=== PATIENT | female | born 1940 | race Caucasian/White ===

== ENCOUNTER 2020-06-24 21:04 | Inpatient (IN) | payer MEDICARE, OTHER ==
[2020-06-24] MEDS ORDERED: Ondansetron 4 MG/2 ML SDV IV PRN (22:49)
[2020-06-24] MEDS ORDERED: Acetaminophen 325 MG Tab PO PRN ×2 (22:49)
[2020-06-24] MEDS ORDERED: Dexamethasone 4 MG Tab PO SCH (23:00)
--- NOTE | 2020-06-24 23:09 | PCM.HP.2 ---
H&P History of Present Illness - General Date of Service: 06/24/20 Admit Problem/Dx: Admission Diagnosis/Problem Admission Diagnosis/Problem Hypoxemia requiring supplemental oxygen - History of Present Illness Initial Comments - Free Text/Narative: 80-year-old female that was transferred from [facility], secondary to newly diagnosed COVID-19 pneumonia. Patient is a poor historian secondary to dementia though most of the history was obtained through previous history and physical from referring hospital and from the . Patient has been states that she started getting tired and more fatigued approximately a week ago. She was [facility] on [facility] 22, 2020 where she was found to have a urinary tract infection. A rapid COVID-19 test was performed in the emergency department which was negative and then a confirmatory test sent to the [facility] the [facility] came back today positive. Chest x-ray was also performed today secondary to a fever which s howed multiple new peripheral pulmonary opacities. Consider acute or recent COVID-19. When patient arrived she was on 2 L nasal cannula and still satting in the upper 80s. She has an underlying dementia as stated above therefore she would pull off her oxygen. Culture results for her urinary tract infection demonstrate E. coli greater than 100,000 colony-forming units. Is resistant to Bactrim, ampicillin, Unasyn, gentamicin, and intermediate resistance to ciprofloxacin. It is otherwise sensitive to all cephalosporins tested. See accompanying notes. Blood work from today showed a C-reactive protein of 10.9, normal white blood cell count of 7.1, anemia with a hemoglobin of 9.4, platelet count normal at 215, and negative occult blood. Initial treatment for her E. coli was with meropenem prior to sensitivities. - Related Data Allergies/Adverse Reactions: Allergies Allergy/AdvReac Type Severity Reaction Status Date / Time No Known Allergies Allergy Verified 06/24/20 22:49 Past Medical History HEENT History: Reports: None Cardiovascular History: Reports: Hypertension Respiratory History: Reports: None Gastrointestinal History: Reports: None Genitourinary History: Reports: None Musculoskeletal History: Reports: None Neurological History: Reports: None Psychiatric History: Reports: Dementia Endocrine/Metabolic History: Reports: Diabetes, Type II Hematologic History: Reports: Anemia Social & Family History - Family History Family Medical History: Unobtainable - Tobacco Use Tobacco Use Status *Q: Former Tobacco User - Alcohol Use Alcohol Use Frequency: Rarely - Living Situation & Occupation Living situation: Reports: , with Spouse H&P Review of Systems - Review of Systems: Review Of Systems: Comprehensive ROS is negative, except as noted in HPI. Exam - Exam Exam: See Below - Exam Quality Assessment: Supplemental Oxygen General: Alert. No: Oriented HEENT: Conjunctiva Clear, Hearing Intact, Mucosa Moist & [place], Normal Nasal Septum Neck: Supple, Trachea Midline, 2 Lungs: Normal Respiratory Effort, Crackles (Scattered bibasilar) Cardiovascular: Regular Rate, Regular Rhythm, Normal S1 GI/Abdominal Exam: Normal Bowel Sounds, Soft, Non-Tender, No Organomegaly, No Distention (Obese), No Abnormal Bruit, No Mass, Pelvis Stable Extremities: Normal Inspection, Normal Range of Motion, Non-Tender, No Pedal Edema, Normal Capillary Refill Skin: Warm, Dry, Intact Neurological: Cranial Nerves Intact Neuro Extensive - Mental Status: Alert, Normal Mood/Affect, Disorientation to Place. No: Memory Intact Psychiatric: Alert, Normal Affect, Normal Mood - Patient Data Result Diagrams: 06/24/20 23:16 06/24/20 23:16 - Problem List (1) Viral pneumonia SNOMED Code(s): 65199940 ICD Code: J12.9 - VIRAL PNEUMONIA, UNSPECIFIED Status: Acute Current Visit: Yes (2) UTI (urinary tract infection) SNOMED Code(s): 72920838 ICD Code: N39.0 - URINARY TRACT INFECTION, SITE NOT SPECIFIED Status: Acute Current Visit: Yes (3) Dementia SNOMED Code(s): 01669117 ICD Code: F03.90 - UNSPECIFIED DEMENTIA WITHOUT BEHAVIORAL DISTURBANCE Status: Acute Current Visit: Yes (4) Diabetes SNOMED Code(s): 49626642 ICD Code: E11.9 - TYPE 2 DIABETES MELLITUS WITHOUT COMPLICATIONS Status: Acute Current Visit: Yes (5) Anemia SNOMED Code(s): 236021291 ICD Code: D64.9 - ANEMIA, UNSPECIFIED Status: Acute Current Visit: Yes Problem List Initiated/Reviewed/Updated: Yes Orders Last 24hrs: Active Orders 24 hr Category Date Time Status Patient Status [ADT] Routine ADT 06/24/20 22:49 Ordered Cardiac Monitoring [RC] . DIRECTED Care 06/24/20 22:49 Ordered Nurse Communication: Isolation [RC] ASDIRECTED Care 06/24/20 22:52 Ordered Oxygen Therapy [RC] PRN Care 06/24/20 22:50 Ordered Positioning, Patient [RC] ASDIRECTED Care 06/24/20 22:53 Ordered RT Incentive Spirometry [RC] ASDIRECTED Care 06/24/20 22:49 Ordered Up With Assistance [RC] ASDIRECTED Care 06/24/20 22:49 Ordered VTE/DVT Education [RC] PER UNIT ROUTINE Care 06/24/20 22:50 Ordered Verify Patient Consent Obtain [RC] ASDIRECTED Care 06/24/20 22:50 Ordered Vital Signs [RC] Q4H Care 06/24/20 22:50 Ordered Consistent Carbohydrate Diet [DIET] Diet 06/25/20 Breakfast Ordered Chest 1V Frontal [CR] Stat Exams 06/24/20 22:55 Ordered ABO/RH TYPE [BBK] Routine Lab 06/24/20 22:50 Ordered BASIC METABOLIC PANEL,BMP [CHEM] Stat Lab 06/24/20 22:49 Ordered C-REACTIVE PROTEIN [CHEM] Stat Lab 06/24/20 22:49 Ordered CBC WITH AUTO DIFF [HEME] Stat Lab 06/24/20 22:54 Ordered CORONAVIRUS COVID-19 MIMI [MOLEC] Stat Lab 06/24/20 22:49 Ordered D-DIMER QUANTITATIVE [COAG] Stat Lab 06/24/20 22:49 Ordered FERRITIN [CHEM] Routine Lab 06/24/20 22:49 Ordered FRESH FROZEN PLASMA [BBK] Routine Lab 06/24/20 22:50 Ordered HEPATIC FUNCTION PANEL,HFP [CHEM] DAILY Lab 06/25/20 23:00 Ordered HEPATIC FUNCTION PANEL,HFP [CHEM] DAILY Lab 06/26/20 23:00 Ordered HEPATIC FUNCTION PANEL,HFP [CHEM] DAILY Lab 06/27/20 23:00 Ordered HEPATIC FUNCTION PANEL,HFP [CHEM] DAILY Lab 06/28/20 23:00 Ordered HEPATIC FUNCTION PANEL,HFP [CHEM] Stat Lab 06/24/20 22:49 Ordered INR,PT,PROTHROMBIN TIME [COAG] Routine Lab 06/24/20 22:55 Ordered LACTATE DEHYDROGENASE,LDH [CHEM] Stat Lab 06/24/20 22:49 Ordered LACTIC ACID [CHEM] Stat Lab 06/24/20 22:49 Ordered PROCALCITONIN [REF] Stat Lab 06/24/20 22:49 Ordered PTT,PARTIAL THROMBOPLSTIN TIME [COAG] Routine Lab 06/24/20 22:49 Ordered Acetaminophen [TylenoL] Med 06/24/20 22:49 Ordered 650 mg PO Q4H PRN Acetaminophen [TylenoL] Med 06/24/20 22:49 Ordered 650 mg PO Q4H PRN Enoxaparin [Lovenox] Med 06/25/20 09:00 Ordered 40 mg SUBCUT DAILY Ondansetron [Zofran] Med 06/24/20 22:49 Ordered 4 mg IV Q4H PRN Remdesivir 100 mg Med 06/25/20 09:00 Ordered Sodium Chloride 0.9% [Normal Saline] 100 ml IV DAILY Remdesivir 200 mg Med 06/24/20 22:49 Ordered Sodium Chloride 0.9% [Normal Saline] 250 ml IV ONETIME dexAMETHasone Med 06/24/20 23:00 Ordered 6 mg PO DAILY Isolation [COMM] Stat Oth 06/24/20 22:50 Ordered Transfuse Fresh Frozen Plasma [COMM] Routine Oth 06/24/20 22:50 Ordered Resuscitation Status Routine Resus Stat 06/24/20 22:49 Ordered Medication Orders Acetaminophen (Tylenol) 650 mg PO Q4H PRN PRN Reason: Fever Greater Than 101 Dexamethasone (Dexamethasone) 6 mg PO DAILY KRYSTINA Stop: 07/03/20 09:01 Remdesivir 200 mg/ Sodium (Chloride) 250 mls @ 250 mls/hr IV ONETIME ONE Stop: 06/24/20 22:50 Remdesivir 100 mg/ Sodium (Chloride) 100 mls @ 100 mls/hr IV DAILY KRYSTINA Stop: 06/28/20 09:59 Assessment/Plan Comment:: Assessment 80-year-old female with poorly controlled diabetes with 1 week history of increasing fatigue and altered mental status was transferred from [facility] after a positive COVID-19 result. Patient was hospitalized for 2 days for a UTI prior to transfer. Covid viral pneumonia Hypoxemia * Initial testing at a near hospital was negative but confirmatory testing done on the same day was sent to the [facility] was positive. * Reported fever today and chest x-ray consistent with viral pneumonia. * Repeat testing here was positive * agreed to treatment with convalescent plasma * I spoke with the patient and her to provide information about convalescent plasma. I offered the "fax sheet for patients and parents/careg coco, for COVID-19 convalescent plasma to read and review. I stated that therapy has been approved by an emergency use authorization process and has not fully been FDA reviewed or approved. I shared potential risks from the therapy including transmission of blood borne pathogen such as HIV and hepatitis C, allergic and transfusion related reactions, post transfusion purpura. Additionally theoretical risks include a phenomenon called antibody- dependent enhancement of infection such as is seen in dengue or attenuation of an immune response that may make patients more susceptible to reinfection. 2 units ordered * Further laboratory testing pending Type 2 diabetespoorly controlled * On glipizide and Metformin at home * Unknown hemoglobin A1c Dementia * COVID-19 and the hypoxemia associated with it has a tendency to worsen mental status. * Dexamethasone used to combat COVID-19 also can worsen confusion. * Finally the elderly in a hospital setting can also have an increased risk for delirium. * Anticipate increasing confusion over the next few days. UTI, uncomplicated * E. coli sensitive to cefazolin Anemia * Reportedly chronic * History of previous work-up not available to me. * Fecal occult testing done in [place] was negative. Plan * Admit to medical floor on continuous pulse ox and telemetry * FiO2 to keep SPO2 between 88 and 94% * Patient may have difficulty keeping the nasal cannula in her nose because of her confusion. When I walked in it was out of her nose. * Start dexamethasone, remdesivir, convalescent plasma, vitamin D, zinc, Pepcid * Covid laboratory studies ordered * Anemia work-up pending * Keflex 500 mg 4 times daily for 3 days to complete 6 days of treatment * Start sliding scale insulin and stop Glucophage and glipizide, which she was on in the hospital and had a year * Reconcile other medications when available * Patient's been on 3 days of antibiotics, therefore blood cultures will be performed. * CODE STATUS: Full code * DVT prophylaxis with Lovenox - Mortality Measure Prognosis:: Good
[2020-06-24 23:39] LABS: HEMOGLOBIN A1C 8.1 %
[2020-06-25] MEDS ORDERED: Cephalexin 500 MG Cap PO SCH
[2020-06-25] MEDS ORDERED: REMDESIVIR 200 MG in Sodium Chloride 0.9% 250 ML IV ONE (00:15)
[2020-06-25] MEDS: Cephalexin 500 MG Cap PO SCH ×4 (00:59→17:57)
[2020-06-25] MEDS ORDERED: Dexamethasone 4 MG Tab PO SCH (01:00)
[2020-06-25] MEDS ORDERED: Sodium Chloride 0.9% 100 ML IV SCH (01:00)
--- NOTE | 2020-06-25 08:31 | CR ---
Chest: Portable view of the chest was obtained. Comparison: No prior chest imaging is available. Heart size and mediastinum are normal. Lung markings are increased with mild peripheral basilar densities most likely representing mild bronchitis and mild peripheral bilateral pneumonia. Scoliosis is noted within the spine. No acute osseous abnormality is appreciated. Impression: 1. Findings compatible with mild bronchitis and mild pneumonia, suspicious for possible viral disease. Please correlate. Diagnostic code #3 I agree with preliminary report from [facility], finalized on 06/25/20, 4:45 AM Central Standard Time
--- NOTE | 2020-06-25 08:34 | PCM.PN ---
- General Info Date of Service: 06/25/20 Admission Dx/Problem (Free Text): Admission Diagnosis/Problem Admission Diagnosis/Problem Hypoxemia requiring supplemental oxygen Subjective Update: The patient is a 80-year-old lady who had been directly admitted to the hospital yesterday due to COVID-19 pneumonia. [facility] and was found to have a urinary tract infection apparently E. coli and the patient has been started on Keflex. Patient today says that she is feeling well. She has no oxygen on at the time of examination. She does not feel short of breath. She has denied any pain. The patient also says that she has been tolerating her diet. Functional Status: Reports: Pain Controlled - Review of Systems General: Reports: No Symptoms HEENT: Reports: No Symptoms Pulmonary: Reports: No Symptoms Cardiovascular: Reports: No Symptoms Gastrointestinal: Reports: No Symptoms Genitourinary: Reports: No Symptoms Musculoskeletal: Reports: No Symptoms Skin: Reports: No Symptoms Neurological: Reports: No Symptoms Psychiatric: Reports: No Symptoms - Patient Data Vitals - Most Recent: Last Vital Signs Temp 36.9 C 06/25/20 07:34 Pulse 67 06/25/20 07:34 Resp 14 06/25/20 07:34 BP 129/57 L 06/25/20 07:34 Pulse Ox 94 L 06/25/20 07:34 Weight - Most Recent: 77.474 kg I&O - Last 24 Hours: Intake & Output 06/24/20 06/25/20 06/25/20 22:59 06:59 14:59 Intake Total 207 Balance 207 Lab Results Last 24 Hours: Laboratory Results - last 24 hr 06/24/20 06/24/20 06/24/20 Range/Units 23:12 23:15 23:16 WBC (3.98-10.04) K/mm3 RBC (3.98-5.22) M/mm3 Hgb (11.2-15.7) gm/dl Hct (34.1-44.9) % MCV (79.4-94.8) fl MCH (25.6-32.2) pg MCHC (32.2-35.5) g/dl RDW Std Deviation (36.4-46.3) fL Plt Count (182-369) K/mm3 MPV (9.4-12.3) fl Neut % (Auto) (34.0-71.1) % Lymph % (Auto) (19.3-51.7) % [place] % (Auto) (4.7-12.5) % Eos % (Auto) (0.7-5.8) Baso % (Auto) (0.1-1.2) % Neut # (Auto) (1.56-6.13) K/mm3 Lymph # (Auto) (1.18-3.74) K/mm3 [place] # (Auto) (0.24-0.36) K/mm3 Eos # (Auto) (0.04-0.36) K/mm3 Baso # (Auto) (0.01-0.08) K/mm3 Manual Slide Review PT (9.7-12.0) SECONDS INR APTT (21.7-31.4) SECONDS D-Dimer, Quantitative (0.19-0.50) mg/L Sodium (136-145) mEq/L Potassium (3.5-5.1) mEq/L Chloride (98-107) mEq/L Carbon Dioxide (21-32) mEq/L Anion Gap (5-15) BUN (7-18) mg/dL Creatinine (0.55-1.02) mg/dL Est Cr Clr Drug Dosing Estimated GFR (MDRD) (>60) mL/min BUN/Creatinine Ratio (14-18) Glucose (83-115) mg/dL POC Glucose (83-110) mg/dL Hemoglobin A1c ( - 5.6) % Lactic Acid (0.4-2.0) mmol/L Calcium (8.5-10.1) mg/dL Iron (50-170) ug/dL TIBC (100-400) ug/dL % Saturation (20-55) % Transferrin (202-364) mg/dL Ferritin 281 H (8-252) ng/ml Total Bilirubin (0.2-1.0) mg/dL Direct Bilirubin (0.0-0.2) mg/dl Indirect Bilirubin AST (15-37) U/L ALT (14-59) U/L Alkaline Phosphatase (46-116) U/L Lactate Dehydrogenase (81-234) U/L C-Reactive Protein (<1.0) mg/dL Total Protein (6.4-8.2) g/dl Albumin (3.4-5.0) g/dl Globulin gm/dL Albumin/Globulin Ratio (1-2) Vitamin B12 (193-986) pg/ml Vitamin D 25-Hydroxy (30.0-100.0) ng/ml SARS-CoV-2 RNA (MIMI) Positive H (NEGATIVE) Blood Type O POSITIVE Gel Antibody Screen Negative 06/24/20 06/24/20 06/24/20 Range/Units 23:16 23:16 23:16 WBC (3.98-10.04) K/mm3 RBC (3.98-5.22) M/mm3 Hgb (11.2-15.7) gm/dl Hct (34.1-44.9) % MCV (79.4-94.8) fl MCH (25.6-32.2) pg MCHC (32.2-35.5) g/dl RDW Std Deviation (36.4-46.3) fL Plt Count (182-369) K/mm3 MPV (9.4-12.3) fl Neut % (Auto) (34.0-71.1) % Lymph % (Auto) (19.3-51.7) % [place] % (Auto) (4.7-12.5) % Eos % (Auto) (0.7-5.8) Baso % (Auto) (0.1-1.2) % Neut # (Auto) (1.56-6.13) K/mm3 Lymph # (Auto) (1.18-3.74) K/mm3 [place] # (Auto) (0.24-0.36) K/mm3 Eos # (Auto) (0.04-0.36) K/mm3 Baso # (Auto) (0.01-0.08) K/mm3 Manual Slide Review PT 11.9 (9.7-12.0) SECONDS INR 1.11 APTT 33.7 H (21.7-31.4) SECONDS D-Dimer, Quantitative 0.99 H (0.19-0.50) mg/L Sodium 140 (136-145) mEq/L Potassium 3.7 (3.5-5.1) mEq/L Chloride 105 (98-107) mEq/L Carbon Dioxide 23 (21-32) mEq/L Anion Gap 15.7 H (5-15) BUN 17 (7-18) mg/dL Creatinine 0.8 (0.55-1.02) mg/dL Est Cr Clr Drug Dosing TNP Estimated GFR (MDRD) > 60 (>60) mL/min BUN/Creatinine Ratio 21.3 H (14-18) Glucose 141 H (83-115) mg/dL POC Glucose (83-110) mg/dL Hemoglobin A1c ( - 5.6) % Lactic Acid 0.9 (0.4-2.0) mmol/L Calcium 7.8 L (8.5-10.1) mg/dL Iron (50-170) ug/dL TIBC (100-400) ug/dL % Saturation (20-55) % Transferrin (202-364) mg/dL Ferritin (8-252) ng/ml Total Bilirubin 0.5 (0.2-1.0) mg/dL Direct Bilirubin 0.10 (0.0-0.2) mg/dl Indirect Bilirubin 0.40 AST 23 (15-37) U/L ALT 12 L (14-59) U/L Alkaline Phosphatase 81 (46-116) U/L Lactate Dehydrogenase 212 (81-234) U/L C-Reactive Protein 14.1 H* (<1.0) mg/dL Total Protein 6.5 (6.4-8.2) g/dl Albumin 2.4 L (3.4-5.0) g/dl Globulin 4.1 gm/dL Albumin/Globulin Ratio 0.6 L (1-2) Vitamin B12 (193-986) pg/ml Vitamin D 25-Hydroxy (30.0-100.0) ng/ml SARS-CoV-2 RNA (MIMI) (NEGATIVE) Blood Type Gel Antibody Screen 06/24/20 06/24/20 06/24/20 Range/Units 23:16 23:16 23:16 WBC 7.31 (3.98-10.04) K/mm3 RBC 3.04 L (3.98-5.22) M/mm3 Hgb 8.3 L (11.2-15.7) gm/dl Hct 26.2 L (34.1-44.9) % MCV 86.2 (79.4-94.8) fl MCH 27.3 (25.6-32.2) pg MCHC 31.7 L (32.2-35.5) g/dl RDW Std Deviation 46.1 (36.4-46.3) fL Plt Count 226 (182-369) K/mm3 MPV 10.4 (9.4-12.3) fl Neut % (Auto) 74.6 H (34.0-71.1) % Lymph % (Auto) 19.0 L (19.3-51.7) % [place] % (Auto) 5.7 (4.7-12.5) % Eos % (Auto) 0.3 L (0.7-5.8) Baso % (Auto) 0.1 (0.1-1.2) % Neut # (Auto) 5.45 (1.56-6.13) K/mm3 Lymph # (Auto) 1.39 (1.18-3.74) K/mm3 [place] # (Auto) 0.42 H (0.24-0.36) K/mm3 Eos # (Auto) 0.02 L (0.04-0.36) K/mm3 Baso # (Auto) 0.01 (0.01-0.08) K/mm3 Manual Slide Review Abnormal smear PT (9.7-12.0) SECONDS INR APTT (21.7-31.4) SECONDS D-Dimer, Quantitative (0.19-0.50) mg/L Sodium (136-145) mEq/L Potassium (3.5-5.1) mEq/L Chloride (98-107) mEq/L Carbon Dioxide (21-32) mEq/L Anion Gap (5-15) BUN (7-18) mg/dL Creatinine (0.55-1.02) mg/dL Est Cr Clr Drug Dosing Estimated GFR (MDRD) (>60) mL/min BUN/Creatinine Ratio (14-18) Glucose (83-115) mg/dL POC Glucose (83-110) mg/dL Hemoglobin A1c 8.1 H ( - 5.6) % Lactic Acid (0.4-2.0) mmol/L Calcium (8.5-10.1) mg/dL Iron (50-170) ug/dL TIBC (100-400) ug/dL % Saturation (20-55) % Transferrin (202-364) mg/dL Ferritin (8-252) ng/ml Total Bilirubin (0.2-1.0) mg/dL Direct Bilirubin (0.0-0.2) mg/dl Indirect Bilirubin AST (15-37) U/L ALT (14-59) U/L Alkaline Phosphatase (46-116) U/L Lactate Dehydrogenase (81-234) U/L C-Reactive Protein (<1.0) mg/dL Total Protein (6.4-8.2) g/dl Albumin (3.4-5.0) g/dl Globulin gm/dL Albumin/Globulin Ratio (1-2) Vitamin B12 765 (193-986) pg/ml Vitamin D 25-Hydroxy (30.0-100.0) ng/ml SARS-CoV-2 RNA (MIMI) (NEGATIVE) Blood Type Gel Antibody Screen 06/24/20 06/24/20 06/25/20 Range/Units 23:16 23:16 07:08 WBC (3.98-10.04) K/mm3 RBC (3.98-5.22) M/mm3 Hgb (11.2-15.7) gm/dl Hct (34.1-44.9) % MCV (79.4-94.8) fl MCH (25.6-32.2) pg MCHC (32.2-35.5) g/dl RDW Std Deviation (36.4-46.3) fL Plt Count (182-369) K/mm3 MPV (9.4-12.3) fl Neut % (Auto) (34.0-71.1) % Lymph % (Auto) (19.3-51.7) % [place] % (Auto) (4.7-12.5) % Eos % (Auto) (0.7-5.8) Baso % (Auto) (0.1-1.2) % Neut # (Auto) (1.56-6.13) K/mm3 Lymph # (Auto) (1.18-3.74) K/mm3 [place] # (Auto) (0.24-0.36) K/mm3 Eos # (Auto) (0.04-0.36) K/mm3 Baso # (Auto) (0.01-0.08) K/mm3 Manual Slide Review PT (9.7-12.0) SECONDS INR APTT (21.7-31.4) SECONDS D-Dimer, Quantitative (0.19-0.50) mg/L Sodium (136-145) mEq/L Potassium (3.5-5.1) mEq/L Chloride (98-107) mEq/L Carbon Dioxide (21-32) mEq/L Anion Gap (5-15) BUN (7-18) mg/dL Creatinine (0.55-1.02) mg/dL Est Cr Clr Drug Dosing Estimated GFR (MDRD) (>60) mL/min BUN/Creatinine Ratio (14-18) Glucose (83-115) mg/dL POC Glucose 132 H (83-110) mg/dL Hemoglobin A1c ( - 5.6) % Lactic Acid (0.4-2.0) mmol/L Calcium (8.5-10.1) mg/dL Iron 9 L (50-170) ug/dL TIBC 203 (100-400) ug/dL % Saturation 4 L (20-55) % Transferrin 162 L (202-364) mg/dL Ferritin (8-252) ng/ml Total Bilirubin (0.2-1.0) mg/dL Direct Bilirubin (0.0-0.2) mg/dl Indirect Bilirubin AST (15-37) U/L ALT (14-59) U/L Alkaline Phosphatase (46-116) U/L Lactate Dehydrogenase (81-234) U/L C-Reactive Protein (<1.0) mg/dL Total Protein (6.4-8.2) g/dl Albumin (3.4-5.0) g/dl Globulin gm/dL Albumin/Globulin Ratio (1-2) Vitamin B12 (193-986) pg/ml Vitamin D 25-Hydroxy 26.9 L (30.0-100.0) ng/ml SARS-CoV-2 RNA (MIMI) (NEGATIVE) Blood Type Gel Antibody Screen Med Orders - Current: Current Medications Acetaminophen (Tylenol) 650 mg PO Q4H PRN PRN Reason: Fever Greater Than 101 Last Admin: 06/25/20 03:37 Dose: 650 mg Documented by: Cephalexin (Keflex) 500 mg PO Q6HR KRYSTINA Stop: 06/27/20 18:01 Last Admin: 06/25/20 08:12 Dose: 500 mg Documented by: Cholecalciferol (Vitamin D3) 5,000 unit PO DAILY KRYSTINA Dexamethasone (Dexamethasone) 6 mg PO DAILY KRYSTINA Stop: 07/03/20 09:01 Last Admin: 06/25/20 00:54 Dose: 6 mg Documented by: Enoxaparin Sodium (Lovenox) 40 mg SUBCUT DAILY [facility] Famotidine (Pepcid) 20 mg PO BID [facility] Remdesivir 100 mg/ Sodium (Chloride) 100 mls @ 100 mls/hr IV DAILY@1800 [facility] Stop: 06/28/20 18:59 Sodium Chloride (Normal Saline) 100 mls @ 25 mls/hr IV ASDIRECTED [facility] Insulin Human Lispro (Humalog) 0 unit SUBCUT QIDACANDBED [facility]; Protocol Ondansetron HCl (Zofran) 4 mg IV Q4H PRN PRN Reason: Nausea/Vomiting Zinc Sulfate (Zincate) 220 mg PO DAILY [facility] Discontinued Medications Acetaminophen (Tylenol) 650 mg PO Q4H PRN PRN Reason: Pain (Mild 1-3)/fever Remdesivir 200 mg/ Sodium (Chloride) 250 mls @ 250 mls/hr IV ONETIME ONE Stop: 06/25/20 01:14 Last Admin: 06/25/20 00:52 Dose: 250 mls/hr Documented by: - Exam Quality Assessment: DVT Prophylaxis. No: Supplemental Oxygen General: Alert, Oriented, Cooperative HEENT: Pupils Equal, Pupils Reactive, EOMI Neck: Supple, Trachea Midline Lungs: Clear to Auscultation, Normal Respiratory Effort Cardiovascular: Regular Rate, Regular Rhythm GI/Abdominal Exam: Normal Bowel Sounds, Soft, Non-Tender, No Distention (Female) Exam: Deferred Back Exam: Normal Inspection Extremities: Normal Inspection, No Pedal Edema Skin: Warm, Dry, Intact Neurological: No New Focal Deficit Psy/Mental Status: Alert, Normal Affect, Normal Mood Sepsis Event Note - Focused Exam Vital Signs: Vital Signs Temp Pulse Pulse Resp BP BP Pulse Ox 06/25/20 07:34 36.9 C 67 14 129/57 L 94 L 06/25/20 04:19 36.9 C 83 22 H 116/48 L 92 L 06/25/20 03:12 36.9 C 82 22 H 116/48 L 92 L 06/25/20 03:00 37.1 C 84 22 H 135/97 H 90 L 06/25/20 02:57 37.1 C 81 22 H 135/97 H 91 L 06/25/20 02:42 37.6 C 81 24 H 118/64 06/25/20 02:39 81 118/64 91 L 06/25/20 02:36 37.6 C 80 24 H 98/85 90 L 06/25/20 02:22 37.4 C 06/25/20 00:07 37.2 C 81 20 149/46 H 88 L 06/24/20 21:22 36.9 C 82 24 H 137/59 L 94 L - Problem List & Annotations (1) Acute respiratory failure due to COVID-19 SNOMED Code(s): 232702209 Code(s): U07.1 - COVID-19; J96.00 - ACUTE RESPIRATORY FAILURE, UNSP W HYPOXIA OR HYPERCAPNIA Status: Acute Priority: High Current Visit: Yes (2) COVID-19 determined by clinical diagnostic criteria SNOMED Code(s): 671042527, 651215302 Code(s): U07.1 - COVID-19 Status: Acute Priority: High Current Visit: Yes (3) Viral pneumonia SNOMED Code(s): 95680438 Code(s): J12.9 - VIRAL PNEUMONIA, UNSPECIFIED Status: Acute Priority: High Current Visit: Yes (4) UTI (urinary tract infection) SNOMED Code(s): 11390647 Code(s): N39.0 - URINARY TRACT INFECTION, SITE NOT SPECIFIED Status: Acute Priority: High Current Visit: Yes Qualifiers: Urinary tract infection type: site unspecified Hematuria presence: without hematuria Qualified Code(s): N39.0 - Urinary tract infection, site not specified (5) Diabetes SNOMED Code(s): 64736833 Code(s): E11.9 - TYPE 2 DIABETES MELLITUS WITHOUT COMPLICATIONS Status: Chronic Priority: Medium Current Visit: Yes Qualifiers: Diabetes mellitus type: type 2 Diabetes mellitus retirement insulin use: without retirement use Diabetes mellitus complication status: without complication Qualified Code(s): E11.9 - Type 2 diabetes mellitus without complications - Problem List Review Problem List Initiated/Reviewed/Updated: Yes - Assessment Assessment:: Patient is a 80-year-old lady who is being treated for Covid pneumonia with hypoxemia. The patient will be kept on oxygen support to help keep her saturations between 90 and 92%. The patient is currently on remdesivir and this will be continued for full treatment dose. I have also ordered a CBC to follow the patient's previously noted anemia. Comprehensive metabolic panel has also been ordered. The patient will have appropriate carb constant diet and her blood sugars will be checked as per protocol. Her blood sugars are likely to be high as she is also on a steroid. The patient has been encouraged to ambulate. DVT prophylaxis will continue with Lovenox. The patient will also continue Keflex for her urinary tract infection. She should be appropriate for discharge after completion of her antiviral. - Plan Plan:: Assessment 80-year-old female with poorly controlled diabetes with 1 week history of increasing fatigue and altered mental status was transferred from [facility] after a positive COVID-19 result. Patient was hospitalized for 2 days for a UTI prior to transfer. Covid viral pneumonia Hypoxemia * Initial testing at a near hospital was negative but confirmatory testing done on the same day was sent to the state was positive. * Reported fever today and chest x-ray consistent with viral pneumonia. * Repeat testing here was positive * agreed to treatment with convalescent plasma * I spoke with the patient and her to provide information about convalescent plasma. I offered the "fax sheet for patients and parents/caregivers, for COVID-19 convalescent plasma to read and review. I stated that therapy has been approved by an emergency use authorization process and has not fully been FDA reviewed or approved. I shared potential risks from the therapy including transmission of blood borne pathogen such as HIV and hepatitis C, allergic and transfusion related reactions, post transfusion purpura. Additionally theoretical risks include a phenomenon called antibody-dependent enhancement of infection such as is seen in dengue or attenuation of an immune response that may make patients more susceptible to reinfection. 2 units ordered * Further laboratory testing pending Type 2 diabetespoorly controlled * On glipizide and Metformin at home * Unknown hemoglobin A1c Dementia * COVID-19 and the hypoxemia associated with it has a tendency to worsen mental status. * Dexamethasone used to combat COVID-19 also can worsen confusion. * Finally the elderly in a hospital setting can also have an increased risk for delirium. * Anticipate increasing confusion over the next few days. UTI, uncomplicated * E. coli sensitive to cefazolin Anemia * Reportedly chronic * History of previous work-up not available to me. * Fecal occult testing done in [place] was negative. Plan * Admit to medical floor on continuous pulse ox and telemetry * FiO2 to keep SPO2 between 88 and 94% * Patient may have difficulty keeping the nasal cannula in her nose because of her confusion. When I walked in it was out of her nose. * Start dexamethasone, remdesivir, convalescent plasma, vitamin D, zinc, Pepcid * Covid laboratory studies ordered * Anemia work-up pending * Keflex 500 mg 4 times daily for 3 days to complete 6 days of treatment * Start sliding scale insulin and stop Glucophage and glipizide, which she was on in the hospital and had a year * Reconcile other medications when available * Patient's been on 3 days of antibiotics, therefore blood cultures will be performed. * CODE STATUS: Full code * DVT prophylaxis with Lovenox
[2020-06-25] MEDS: Enoxaparin 40 MG/0.4 ML Syringe SUBCUT SCH (09:37)
[2020-06-25] MEDS: Famotidine 20 MG Tab PO SCH ×2 (09:38→21:47)
[2020-06-25] MEDS: Zinc Sulfate 220 MG Cap PO SCH (09:38)
[2020-06-25] MEDS: Cholecalciferol (Vitamin D3) 5,000 UNIT Cap PO SCH (09:38)
--- NOTE | 2020-06-25 17:30 | PCM.SN.2 ---
- Free Text/Narrative Note: Called for difficult IV start. Multiple failed previous attempts. Lidocaine to skin, 20 gauge IV inserted with standard aseptic technique to her right antecubital vein, good blood return, flushes well with 10 ml of normal saline, secured with transparent dressing and skin prep in IV start kit. Nursing staff present for insertion to assist with Farhana. Tolerated the placement well.
[2020-06-25] MEDS: REMDESIVIR 100 MG in Sodium Chloride 0.9% 100 ML IV SCH (17:56)
[2020-06-25] MEDS: Donepezil 10 MG Tab PO SCH (21:47)
[2020-06-25] MEDS: Dexamethasone 4 MG Tab PO SCH (21:47)
[2020-06-26] MEDS: Cephalexin 500 MG Cap PO SCH ×5 (01:27→23:35)
[2020-06-26] MEDS ORDERED: Triamcinolone Acetonide 0.1% Crm 15 GM Tube TOP PRN (07:19)
[2020-06-26] MEDS ORDERED: Hydrocortisone 1% Crm 30 GM Tube TOP PRN (07:27)
[2020-06-26] MEDS: Famotidine 20 MG Tab PO SCH ×2 (08:43→21:09)
[2020-06-26] MEDS: Aspirin 325 MG Tab.EC PO SCH (08:43)
[2020-06-26] MEDS: metFORMIN 500 MG Tab PO SCH ×2 (08:44→21:07)
[2020-06-26] MEDS: Zinc Sulfate 220 MG Cap PO SCH (08:44)
[2020-06-26] MEDS: Cholecalciferol (Vitamin D3) 5,000 UNIT Cap PO SCH (08:47)
[2020-06-26] MEDS: Lisinopril 20 MG Tab PO SCH (08:47)
[2020-06-26] MEDS: Hydrochlorothiazide 25 MG Tab PO SCH (08:47)
[2020-06-26] MEDS: Enoxaparin 40 MG/0.4 ML Syringe SUBCUT SCH (08:48)
[2020-06-26] MEDS ORDERED: Pregabalin 75 MG Cap PO SCH (09:00)
--- NOTE | 2020-06-26 09:18 | PCM.PN ---
- General Info Date of Service: 06/26/20 Admission Dx/Problem (Free Text): Admission Diagnosis/Problem Admission Diagnosis/Problem Hypoxemia requiring supplemental oxygen, COVID- 19 Subjective Update: Patient is a 80-year-old lady who was admitted on June 24, 2020 with hypoxia requiring supplemental oxygen. She was found to be Covid positive. The patient today does not have her oxygen on and she has been desaturating down to a recorded 88%. The patient does not remember speaking with me yesterday and she is disoriented today. The patient has denied any pain. She has been tolerating her diet. Functional Status: Reports: Pain Controlled, Tolerating Diet. Denies: New Symptoms - Review of Systems General: Reports: Weakness HEENT: Reports: No Symptoms Pulmonary: Reports: No Symptoms Cardiovascular: Reports: No Symptoms Gastrointestinal: Reports: No Symptoms Genitourinary: Reports: No Symptoms Musculoskeletal: Reports: No Symptoms Skin: Reports: No Symptoms Neurological: Reports: No Symptoms Psychiatric: Reports: No Symptoms - Patient Data Vitals - Most Recent: Last Vital Signs Temp 37.1 C 06/26/20 05:36 Pulse 73 06/26/20 05:36 Resp 20 06/26/20 05:36 BP 164/82 H 06/26/20 08:47 Pulse Ox 88 L 06/26/20 05:36 Weight - Most Recent: 76.748 kg I&O - Last 24 Hours: Intake & Output 06/25/20 06/26/20 06/26/20 22:59 06:59 14:59 Intake Total 580 600 Output Total 500 Balance 580 100 Lab Results Last 24 Hours: Laboratory Results - last 24 hr 06/24/20 06/24/20 06/25/20 Range/Units 23:15 23:16 10:45 PT (9.7-12.0) SECONDS INR D-Dimer, Quantitative (0.19-0.50) mg/L Sodium (136-145) mEq/L Potassium (3.5-5.1) mEq/L Chloride (98-107) mEq/L Carbon Dioxide (21-32) mEq/L Anion Gap (5-15) BUN (7-18) mg/dL Creatinine (0.55-1.02) mg/dL Est Cr Clr Drug Dosing mL/min Estimated GFR (MDRD) (>60) mL/min BUN/Creatinine Ratio (14-18) Glucose (83-115) mg/dL POC Glucose 160 H (83-110) mg/dL Calcium (8.5-10.1) mg/dL Magnesium (1.8-2.4) mg/dl Total Bilirubin (0.2-1.0) mg/dL AST (15-37) U/L ALT (14-59) U/L Alkaline Phosphatase (46-116) U/L C-Reactive Protein (<1.0) mg/dL Total Protein (6.4-8.2) g/dl Albumin (3.4-5.0) g/dl Globulin gm/dL Albumin/Globulin Ratio (1-2) Procalcitonin <0.05 ng/mL Blood Type O POSITIVE Gel Antibody Screen Negative 06/25/20 06/25/20 06/26/20 Range/Units 17:09 21:23 05:45 PT (9.7-12.0) SECONDS INR D-Dimer, Quantitative (0.19-0.50) mg/L Sodium (136-145) mEq/L Potassium (3.5-5.1) mEq/L Chloride (98-107) mEq/L Carbon Dioxide (21-32) mEq/L Anion Gap (5-15) BUN (7-18) mg/dL Creatinine (0.55-1.02) mg/dL Est Cr Clr Drug Dosing mL/min Estimated GFR (MDRD) (>60) mL/min BUN/Creatinine Ratio (14-18) Glucose (83-115) mg/dL POC Glucose 160 H 193 H 284 H (83-110) mg/dL Calcium (8.5-10.1) mg/dL Magnesium (1.8-2.4) mg/dl Total Bilirubin (0.2-1.0) mg/dL AST (15-37) U/L ALT (14-59) U/L Alkaline Phosphatase (46-116) U/L C-Reactive Protein (<1.0) mg/dL Total Protein (6.4-8.2) g/dl Albumin (3.4-5.0) g/dl Globulin gm/dL Albumin/Globulin Ratio (1-2) Procalcitonin ng/mL Blood Type Gel Antibody Screen 06/26/20 06/26/20 Range/Units 06:08 06:08 PT 12.4 H (9.7-12.0) SECONDS INR 1.16 D-Dimer, Quantitative 0.97 H (0.19-0.50) mg/L Sodium 144 (136-145) mEq/L Potassium 3.6 (3.5-5.1) mEq/L Chloride 106 (98-107) mEq/L Carbon Dioxide 20 L (21-32) mEq/L Anion Gap 21.6 H (5-15) BUN 19 H (7-18) mg/dL Creatinine 0.9 (0.55-1.02) mg/dL Est Cr Clr Drug Dosing 49.29 mL/min Estimated GFR (MDRD) > 60 (>60) mL/min BUN/Creatinine Ratio 21.1 H (14-18) Glucose 282 H (83-115) mg/dL POC Glucose (83-110) mg/dL Calcium 8.5 (8.5-10.1) mg/dL Magnesium 2.4 (1.8-2.4) mg/dl Total Bilirubin 0.5 (0.2-1.0) mg/dL AST 25 (15-37) U/L ALT 16 (14-59) U/L Alkaline Phosphatase 87 (46-116) U/L C-Reactive Protein 16.6 H* (<1.0) mg/dL Total Protein 7.2 (6.4-8.2) g/dl Albumin 2.6 L (3.4-5.0) g/dl Globulin 4.6 gm/dL Albumin/Globulin Ratio 0.6 L (1-2) Procalcitonin ng/mL Blood Type Gel Antibody Screen Med Orders - Current: Current Medications Acetaminophen (Tylenol) 650 mg PO Q4H PRN PRN Reason: Fever Greater Than 101 Last Admin: 06/25/20 03:37 Dose: 650 mg Documented by: Aspirin (Ecotrin) 325 mg PO DAILY [facility] Last Admin: 06/26/20 08:43 Dose: 325 mg Documented by: Cephalexin (Keflex) 500 mg PO Q6HR [facility] Stop: 06/27/20 18:01 Last Admin: 06/26/20 05:51 Dose: 500 mg Documented by: Cholecalciferol (Vitamin D3) 5,000 unit PO DAILY [facility] Last Admin: 06/26/20 08:47 Dose: 5,000 unit Documented by: Dexamethasone (Dexamethasone) 6 mg PO BEDTIME [facility] Stop: 07/03/20 21:01 Last Admin: 06/25/20 21:47 Dose: 6 mg Documented by: Donepezil HCl (Aricept) 10 mg PO BEDTIME [facility] Last Admin: 06/25/20 21:47 Dose: 10 mg Documented by: Enoxaparin Sodium (Lovenox) 40 mg SUBCUT DAILY [facility] Last Admin: 06/26/20 08:48 Dose: 40 mg Documented by: Famotidine (Pepcid) 20 mg PO BID [facility] Last Admin: 06/26/20 08:43 Dose: 20 mg Documented by: Glipizide (Glucotrol) 5 mg PO ACBREAKFAST [facility] Hydrochlorothiazide (Hydrochlorothiazide) 25 mg PO DAILY [facility] Last Admin: 06/26/20 08:47 Dose: 25 mg Documented by: Hydrocortisone (Hydrocortisone 1% Crm) 0 gm TOP BID PRN PRN Reason: Rash Remdesivir 100 mg/ Sodium (Chloride) 100 mls @ 100 mls/hr IV DAILY@1800 [facility] Stop: 06/28/20 18:59 Last Admin: 06/25/20 17:56 Dose: 100 mls/hr Documented by: Sodium Chloride (Normal Saline) 100 mls @ 25 mls/hr IV ASDIRECTED [facility] Insulin Human Lispro (Humalog) 0 unit SUBCUT QIDACANDBED [facility]; Protocol Last Admin: 06/26/20 08:47 Dose: 6 unit Documented by: Lisinopril (Prinivil) 20 mg PO DAILY [facility] Last Admin: 06/26/20 08:47 Dose: 20 mg Documented by: Metformin HCl (Glucophage) 1,000 mg PO BID [facility] Last Admin: 06/26/20 08:44 Dose: 1,000 mg Documented by: Ondansetron HCl (Zofran) 4 mg IV Q4H PRN PRN Reason: Nausea/Vomiting Pregabalin (Lyrica) 300 mg PO BID [facility] Last Admin: 06/26/20 08:43 Dose: 300 mg Documented by: Simvastatin (Zocor) 20 mg PO BEDTIME [facility] Zinc Sulfate (Zincate) 220 mg PO DAILY [facility] Last Admin: 06/26/20 08:44 Dose: 220 mg Documented by: Discontinued Medications Acetaminophen (Tylenol) 650 mg PO Q4H PRN PRN Reason: Pain (Mild 1-3)/fever Dexamethasone (Dexamethasone) 6 mg PO DAILY [facility] Stop: 07/03/20 09:01 Last Admin: 06/25/20 00:54 Dose: 6 mg Documented by: Remdesivir 200 mg/ Sodium (Chloride) 250 mls @ 250 mls/hr IV ONETIME ONE Stop: 06/25/20 01:14 Last Admin: 06/25/20 00:52 Dose: 250 mls/hr Documented by: Non-Formulary Medication (Lisinopril/Hydrochlorothiazide [Lisinopril-Hctz 20-25 Mg Tab]) 1 tab PO DAILY [facility] Triamcinolone Acetonide (Triamcinolone Acetonide 0.1% Crm) gm TOP BID PRN PRN Reason: Rash - Exam Quality Assessment: DVT Prophylaxis. No: Supplemental Oxygen General: Alert, No Acute Distress. No: Oriented HEENT: Pupils Equal, Pupils Reactive, EOMI Neck: Supple, Trachea Midline Lungs: Normal Respiratory Effort, Crackles (Bibasilar) Cardiovascular: Regular Rate, Regular Rhythm GI/Abdominal Exam: Normal Bowel Sounds, Soft, Non-Tender, No Distention (Female) Exam: Deferred Back Exam: Normal Inspection, Full Range of Motion Extremities: Normal Inspection, No Pedal Edema Skin: Warm, Dry, Intact Neurological: No New Focal Deficit Psy/Mental Status: Alert, Normal Affect Sepsis Event Note - Evaluation Sepsis Screening Result: No Definite Risk - Focused Exam Vital Signs: Vital Signs Temp Pulse Pulse Resp BP BP Pulse Ox 06/26/20 08:47 164/82 H 06/26/20 05:36 37.1 C 73 20 162/77 H 88 L 06/26/20 00:33 37.2 C 75 22 H 125/58 L 83 L 06/25/20 23:54 166/81 H 06/25/20 23:03 36.4 C 73 16 150/101 H 90 L 06/25/20 22:58 36.4 C 73 16 150/100 H 06/25/20 22:37 37.0 C 78 16 162/59 H 91 L 06/25/20 21:46 147/98 H - Problem List & Annotations (1) Acute respiratory failure due to COVID-19 SNOMED Code(s): 111937938 Code(s): U07.1 - COVID-19; J96.00 - ACUTE RESPIRATORY FAILURE, UNSP W HYPOXIA OR HYPERCAPNIA Status: Acute Priority: High Current Visit: Yes (2) COVID-19 determined by clinical diagnostic criteria SNOMED Code(s): 110597116, 546092275 Code(s): U07.1 - COVID-19 Status: Acute Priority: High Current Visit: Yes (3) Viral pneumonia SNOMED Code(s): 78109057 Code(s): J12.9 - VIRAL PNEUMONIA, UNSPECIFIED Status: Acute Priority: High Current Visit: Yes (4) UTI (urinary tract infection) SNOMED Code(s): 16701215 Code(s): N39.0 - URINARY TRACT INFECTION, SITE NOT SPECIFIED Status: Acute Priority: High Current Visit: Yes Qualifiers: Urinary tract infection type: site unspecified Hematuria presence: without hematuria Qualified Code(s): N39.0 - Urinary tract infection, site not specified (5) Diabetes SNOMED Code(s): 70286510 Code(s): E11.9 - TYPE 2 DIABETES MELLITUS WITHOUT COMPLICATIONS Status: Chronic Priority: Medium Current Visit: Yes Qualifiers: Diabetes mellitus type: type 2 Diabetes mellitus terminal press operator insulin use: without terminal press operator use Diabetes mellitus complication status: without complication Qualified Code(s): E11.9 - Type 2 diabetes mellitus without complications - Problem List Review Problem List Initiated/Reviewed/Updated: Yes - My Orders Last 24 Hours: My Active Orders 06/25/20 11:10 OT Evaluation and Treatment [CONS] Routine PT Evaluation and Treatment [CONS] Routine 06/25/20 11:12 OT Evaluation and Treatment [CONS] Routine PT Evaluation and Treatment [CONS] Routine 06/25/20 18:42 Pulse Oximetry Continuous Monitoring [OM.PC] Routine 06/26/20 07:27 Hydrocortisone [Hydrocortisone 1% Crm] 0 gm TOP BID PRN 06/26/20 09:00 Aspirin [Ecotrin] 325 mg PO DAILY Pregabalin [Lyrica] 300 mg PO BID metFORMIN [Glucophage] 1,000 mg PO BID 06/26/20 21:00 Simvastatin [Zocor] 20 mg PO BEDTIME 06/27/20 06:00 glipiZIDE [Glucotrol] 5 mg PO ACBREAKFAST - Assessment Assessment:: Patient is a 80-year-old lady who is being treated for Covid pneumonia with hypoxemia. The patient will be kept on oxygen support to help keep her saturations between 90 and 92%. The patient is currently on remdesivir and this will be continued for full treatment dose. I have also ordered a CBC to follow the patient's previously noted anemia. Comprehensive metabolic panel has also been ordered. The patient will have appropriate carb constant diet and her blood sugars will be checked as per protocol. Her blood sugars are likely to be high as she is also on a steroid. The patient has been encouraged to ambulate. DVT prophylaxis will continue with Lovenox. The patient will also continue Keflex for her urinary tract infection. She should be appropriate for discharge after completion of her antiviral. 06/26/2020 The patient is a 80-year-old lady who is currently being treated for COVID-19 with hypoxia. The patient has a tendency to take her oxygen off and not remembering that she needs it. The patient's donezepil has been restarted. Her medication reconciliation was completed. We will continue on Keflex for her urinary tract infection. The patient is to continue with a carb constant diet. The patient has DVT prophylaxis with the use of Lovenox. This will be monitored along with her renal function. The patient is currently not ready to go home. I am concerned that the patient may require home oxygen and not be in a position to use it. The patient says that she is living at home and her has been taking care of her. We will continue with the full treatment dose for remdesivir. Repeat laboratory studies have been ordered. The patient also continue with her Keflex for urinary tract infection. She has been encouraged to ambulate. - Plan Plan:: Assessment 80-year-old female with poorly controlled diabetes with 1 week history of increasing fatigue and altered mental status was transferred from [facility] after a positive COVID-19 result. Patient was hospitalized for 2 days for a UTI prior to transfer. Covid viral pneumonia Hypoxemia * Initial testing at a near hospital was negative but confirmatory testing done on the same day was sent to the [facility] was positive. * Reported fever today and chest x-ray consistent with viral pneumonia. * Repeat testing here was positive * agreed to treatment with convalescent plasma * I spoke with the patient and her to provide information about convalescent plasma. I offered the "fax sheet for patients and parents/caregivers, for COVID-19 convalescent plasma to read and review. I stated that therapy has been approved by an emergency use authorization process and has not fully been FDA reviewed or approved. I shared potential risks from the therapy including transmission of blood borne pathogen such as HIV and hepatitis C, allergic and transfusion related reactions, post transfusion purpura. Additionally theoretical risks include a phenomenon called antibody-dependent enhancement of infection such as is seen in dengue or attenuation of an immune response that may make patients more susceptible to reinfection. 2 units ordered * Further laboratory testing pending Type 2 diabetespoorly controlled * On glipizide and Metformin at home * Unknown hemoglobin A1c Dementia * COVID-19 and the hypoxemia associated with it has a tendency to worsen mental status. * Dexamethasone used to combat COVID-19 also can worsen confusion. * Finally the elderly in a hospital setting can also have an increased risk for delirium. * Anticipate increasing confusion over the next few days. UTI, uncomplicated * E. coli sensitive to cefazolin Anemia * Reportedly chronic * History of previous work-up not available to me. * Fecal occult testing done in [place] was negative. Plan * Admit to medical floor on continuous pulse ox and telemetry * FiO2 to keep SPO2 between 88 and 94% * Patient may have difficulty keeping the nasal cannula in her nose because of her confusion. When I walked in it was out of her nose. * Start dexamethasone, remdesivir, convalescent plasma, vitamin D, zinc, Pepcid * Covid laboratory studies ordered * Anemia work-up pending * Keflex 500 mg 4 times daily for 3 days to complete 6 days of treatment * Start sliding scale insulin and stop Glucophage and glipizide, which she was on in the hospital and had a year * Reconcile other medications when available * Patient's been on 3 days of antibiotics, therefore blood cultures will be performed. * CODE STATUS: Full code * DVT prophylaxis with Lovenox
--- NOTE | 2020-06-26 11:33 | CR ---
Chest: Portable view of the chest was obtained. Comparison: Prior chest x-ray of 06/24/20. Findings: Patchy areas of increased density are noted within both lungs along the periphery. Slight densities within both lateral costophrenic angles are seen which are stable. Heart size and mediastinum are normal for portable technique. No acute osseous finding is seen. Impression: 1. Findings suspicious for bilateral pneumonia which is stable from previous exam. 2. Nothing acute is definitely appreciated. Diagnostic code #3
[2020-06-26] MEDS: REMDESIVIR 100 MG in Sodium Chloride 0.9% 100 ML IV SCH (17:20)
[2020-06-26] MEDS: Dexamethasone 4 MG Tab PO SCH (21:07)
[2020-06-26] MEDS: Donepezil 10 MG Tab PO SCH (21:09)
[2020-06-26] MEDS: Simvastatin 20 MG Tab PO SCH (21:09)
[2020-06-27] MEDS: glipiZIDE 5 MG Tab PO SCH (06:42)
[2020-06-27] MEDS: Cephalexin 500 MG Cap PO SCH ×3 (06:43→17:17)
--- NOTE | 2020-06-27 07:26 | PCM.PN ---
- General Info Date of Service: 06/27/20 Admission Dx/Problem (Free Text): Admission Diagnosis/Problem Admission Diagnosis/Problem Hypoxemia requiring supplemental oxygen, COVID- 19 Subjective Update: The patient is a 80-year-old lady who was admitted to acute hospitalization on June 24, 2020 for hypoxemia requiring supplemental oxygen. She was also COVID-19 positive. The patient has been recalcitrant to use her oxygen. The patient has denied any pain. She also is concerned about going home. She has been tolerating her diet. She has no other complaints at this time. Functional Status: Reports: Pain Controlled, Tolerating Diet - Review of Systems General: Reports: Weakness HEENT: Reports: No Symptoms Pulmonary: Reports: No Symptoms Cardiovascular: Reports: No Symptoms Gastrointestinal: Reports: No Symptoms Genitourinary: Reports: No Symptoms Musculoskeletal: Reports: No Symptoms Skin: Reports: No Symptoms Neurological: Reports: No Symptoms Psychiatric: Reports: No Symptoms - Patient Data Vitals - Most Recent: Last Vital Signs Temp 36.8 C 06/27/20 03:36 Pulse 68 06/27/20 03:36 Resp 18 06/27/20 03:36 BP 149/99 H 06/27/20 03:36 Pulse Ox 85 L 06/27/20 03:36 Weight - Most Recent: 72.756 kg I&O - Last 24 Hours: Intake & Output 06/26/20 06/27/20 06/27/20 22:59 06:59 14:59 Intake Total 760 900 Output Total 650 500 Balance 110 400 Lab Results Last 24 Hours: Laboratory Results - last 24 hr 06/26/20 06/26/20 06/26/20 Range/Units 11:17 17:08 21:05 WBC (3.98-10.04) K/mm3 RBC (3.98-5.22) M/mm3 Hgb (11.2-15.7) gm/dl Hct (34.1-44.9) % MCV (79.4-94.8) fl MCH (25.6-32.2) pg MCHC (32.2-35.5) g/dl RDW Std Deviation (36.4-46.3) fL Plt Count (182-369) K/mm3 MPV (9.4-12.3) fl Neut % (Auto) (34.0-71.1) % Lymph % (Auto) (19.3-51.7) % [place] % (Auto) (4.7-12.5) % Eos % (Auto) (0.7-5.8) Baso % (Auto) (0.1-1.2) % Neut # (Auto) (1.56-6.13) K/mm3 Lymph # (Auto) (1.18-3.74) K/mm3 [place] # (Auto) (0.24-0.36) K/mm3 Eos # (Auto) (0.04-0.36) K/mm3 Baso # (Auto) (0.01-0.08) K/mm3 Manual Slide Review Sodium (136-145) mEq/L Potassium (3.5-5.1) mEq/L Chloride (98-107) mEq/L Carbon Dioxide (21-32) mEq/L Anion Gap (5-15) BUN (7-18) mg/dL Creatinine (0.55-1.02) mg/dL Est Cr Clr Drug Dosing mL/min Estimated GFR (MDRD) (>60) mL/min BUN/Creatinine Ratio (14-18) Glucose (83-115) mg/dL POC Glucose 342 H 268 H 240 H (83-110) mg/dL Calcium (8.5-10.1) mg/dL Magnesium (1.8-2.4) mg/dl Total Bilirubin (0.2-1.0) mg/dL AST (15-37) U/L ALT (14-59) U/L Alkaline Phosphatase (46-116) U/L Total Protein (6.4-8.2) g/dl Albumin (3.4-5.0) g/dl Globulin gm/dL Albumin/Globulin Ratio (1-2) 06/27/20 06/27/20 06/27/20 Range/Units 05:41 06:05 06:05 WBC 4.50 (3.98-10.04) K/mm3 RBC 3.48 L (3.98-5.22) M/mm3 Hgb 9.5 L (11.2-15.7) gm/dl Hct 29.8 L (34.1-44.9) % MCV 85.6 (79.4-94.8) fl MCH 27.3 (25.6-32.2) pg MCHC 31.9 L (32.2-35.5) g/dl RDW Std Deviation 45.1 (36.4-46.3) fL Plt Count 359 D (182-369) K/mm3 MPV 10.4 (9.4-12.3) fl Neut % (Auto) 66.7 (34.0-71.1) % Lymph % (Auto) 26.7 (19.3-51.7) % [place] % (Auto) 6.0 (4.7-12.5) % Eos % (Auto) 0 L (0.7-5.8) Baso % (Auto) 0.2 (0.1-1.2) % Neut # (Auto) 3.00 (1.56-6.13) K/mm3 Lymph # (Auto) 1.20 (1.18-3.74) K/mm3 [place] # (Auto) 0.27 (0.24-0.36) K/mm3 Eos # (Auto) 0.00 L (0.04-0.36) K/mm3 Baso # (Auto) 0.01 (0.01-0.08) K/mm3 Manual Slide Review Abnormal smear Sodium 142 (136-145) mEq/L Potassium 3.7 (3.5-5.1) mEq/L Chloride 103 (98-107) mEq/L Carbon Dioxide 22 (21-32) mEq/L Anion Gap 20.7 H (5-15) BUN 32 H (7-18) mg/dL Creatinine 1.0 (0.55-1.02) mg/dL Est Cr Clr Drug Dosing 44.24 mL/min Estimated GFR (MDRD) 53 (>60) mL/min BUN/Creatinine Ratio 32.0 H (14-18) Glucose 309 H (83-115) mg/dL POC Glucose 296 H (83-110) mg/dL Calcium 8.8 (8.5-10.1) mg/dL Magnesium 2.4 (1.8-2.4) mg/dl Total Bilirubin 0.5 (0.2-1.0) mg/dL AST 18 (15-37) U/L ALT 14 (14-59) U/L Alkaline Phosphatase 92 (46-116) U/L Total Protein 7.4 (6.4-8.2) g/dl Albumin 2.8 L (3.4-5.0) g/dl Globulin 4.6 gm/dL Albumin/Globulin Ratio 0.6 L (1-2) Med Orders - Current: Current Medications Acetaminophen (Tylenol) 650 mg PO Q4H PRN PRN Reason: Fever Greater Than 101 Last Admin: 06/25/20 03:37 Dose: 650 mg Documented by: Aspirin (Ecotrin) 325 mg PO DAILY COUNT INCLUDES THE [facility] Last Admin: 06/26/20 08:43 Dose: 325 mg Documented by: Cephalexin (Keflex) 500 mg PO Q6HR COUNT INCLUDES THE [facility] Stop: 06/27/20 18:01 Last Admin: 06/27/20 06:43 Dose: 500 mg Documented by: Cholecalciferol (Vitamin D3) 5,000 unit PO DAILY COUNT INCLUDES THE [facility] Last Admin: 06/26/20 08:47 Dose: 5,000 unit Documented by: Dexamethasone (Dexamethasone) 6 mg PO BEDTIME COUNT INCLUDES THE [facility] Stop: 07/03/20 21:01 Last Admin: 06/26/20 21:07 Dose: 6 mg Documented by: Donepezil HCl (Aricept) 10 mg PO BEDTIME COUNT INCLUDES THE [facility] Last Admin: 06/26/20 21:09 Dose: 10 mg Documented by: Enoxaparin Sodium (Lovenox) 40 mg SUBCUT DAILY COUNT INCLUDES THE [facility] Last Admin: 06/26/20 08:48 Dose: 40 mg Documented by: Famotidine (Pepcid) 20 mg PO BID COUNT INCLUDES THE [facility] Last Admin: 06/26/20 21:09 Dose: 20 mg Documented by: Glipizide (Glucotrol) 5 mg PO ACBREAKFAST COUNT INCLUDES THE [facility] Last Admin: 06/27/20 06:42 Dose: 5 mg Documented by: Hydrochlorothiazide (Hydrochlorothiazide) 25 mg PO DAILY COUNT INCLUDES THE [facility] Last Admin: 06/26/20 08:47 Dose: 25 mg Documented by: Hydrocortisone (Hydrocortisone 1% Crm) 0 gm TOP BID PRN PRN Reason: Rash Remdesivir 100 mg/ Sodium (Chloride) 100 mls @ 100 mls/hr IV DAILY@1800 COUNT INCLUDES THE [facility] Stop: 06/28/20 18:59 Last Admin: 06/26/20 17:20 Dose: 100 mls/hr Documented by: Insulin Human Lispro (Humalog) 0 unit SUBCUT QIDACANDBED COUNT INCLUDES THE [facility]; Protocol Last Admin: 06/26/20 21:13 Dose: 4 unit Documented by: Lisinopril (Prinivil) 20 mg PO DAILY COUNT INCLUDES THE [facility] Last Admin: 06/26/20 08:47 Dose: 20 mg Documented by: Metformin HCl (Glucophage) 1,000 mg PO BID COUNT INCLUDES THE [facility] Last Admin: 06/26/20 21:07 Dose: 1,000 mg Documented by: Ondansetron HCl (Zofran) 4 mg IV Q4H PRN PRN Reason: Nausea/Vomiting Pregabalin (Lyrica) 300 mg PO DAILY COUNT INCLUDES THE [facility] Simvastatin (Zocor) 20 mg PO BEDTIME COUNT INCLUDES THE [facility] Last Admin: 06/26/20 21:09 Dose: 20 mg Documented by: Zinc Sulfate (Zincate) 220 mg PO DAILY COUNT INCLUDES THE [facility] Last Admin: 06/26/20 08:44 Dose: 220 mg Documented by: Discontinued Medications Acetaminophen (Tylenol) 650 mg PO Q4H PRN PRN Reason: Pain (Mild 1-3)/fever Dexamethasone (Dexamethasone) 6 mg PO DAILY COUNT INCLUDES THE [facility] Stop: 07/03/20 09:01 Last Admin: 06/25/20 00:54 Dose: 6 mg Documented by: Remdesivir 200 mg/ Sodium (Chloride) 250 mls @ 250 mls/hr IV ONETIME ONE Stop: 06/25/20 01:14 Last Admin: 06/25/20 00:52 Dose: 250 mls/hr Documented by: Sodium Chloride (Normal Saline) 100 mls @ 25 mls/hr IV ASDIRECTED COUNT INCLUDES THE [facility] Non-Formulary Medication (Lisinopril/Hydrochlorothiazide [Lisinopril-Hctz 20-25 Mg Tab]) 1 tab PO DAILY COUNT INCLUDES THE [facility] Pregabalin (Lyrica) 300 mg PO BID COUNT INCLUDES THE [facility] Last Admin: 06/26/20 08:43 Dose: 300 mg Documented by: Triamcinolone Acetonide (Triamcinolone Acetonide 0.1% Crm) gm TOP BID PRN PRN Reason: Rash - Exam Quality Assessment: DVT Prophylaxis. No: Supplemental Oxygen General: Alert, Oriented, Cooperative, No Acute Distress HEENT: Pupils Equal, Pupils Reactive, EOMI Neck: Supple, Trachea Midline Lungs: Clear to Auscultation, Normal Respiratory Effort Cardiovascular: Regular Rate, Regular Rhythm GI/Abdominal Exam: Normal Bowel Sounds, Soft, Non-Tender, No Distention (Female) Exam: Deferred Back Exam: Normal Inspection, Full Range of Motion Extremities: Normal Inspection, Normal Range of Motion, No Pedal Edema Skin: Warm, Dry, Intact Neurological: No New Focal Deficit Psy/Mental Status: Alert, Normal Affect, Normal Mood Sepsis Event Note - Evaluation Sepsis Screening Result: No Definite Risk - Focused Exam Vital Signs: Vital Signs Temp Pulse Resp BP Pulse Ox 06/27/20 03:36 36.8 C 68 18 149/99 H 85 L 06/26/20 23:32 36.6 C 63 18 144/53 H 93 L 06/26/20 19:51 36.9 C 66 16 141/97 H 93 L - Problem List & Annotations (1) Acute respiratory failure due to COVID-19 SNOMED Code(s): 031197668 Code(s): U07.1 - COVID-19; J96.00 - ACUTE RESPIRATORY FAILURE, UNSP W HYPOXIA OR HYPERCAPNIA Status: Acute Priority: High Current Visit: Yes (2) COVID-19 determined by clinical diagnostic criteria SNOMED Code(s): 335375335, 975559584 Code(s): U07.1 - COVID-19 Status: Acute Priority: High Current Visit: Yes (3) Viral pneumonia SNOMED Code(s): 34340413 Code(s): J12.9 - VIRAL PNEUMONIA, UNSPECIFIED Status: Acute Priority: High Current Visit: Yes (4) UTI (urinary tract infection) SNOMED Code(s): 60871355 Code(s): N39.0 - URINARY TRACT INFECTION, SITE NOT SPECIFIED Status: Acute Priority: High Current Visit: Yes Qualifiers: Urinary tract infection type: site unspecified Hematuria presence: without hematuria Qualified Code(s): N39.0 - Urinary tract infection, site not specified (5) Diabetes SNOMED Code(s): 45839836 Code(s): E11.9 - TYPE 2 DIABETES MELLITUS WITHOUT COMPLICATIONS Status: Chronic Priority: Medium Current Visit: Yes Qualifiers: Diabetes mellitus type: type 2 Diabetes mellitus extermination inspector insulin use: without senior care use Diabetes mellitus complication status: without complication Qualified Code(s): E11.9 - Type 2 diabetes mellitus without complications - Problem List Review Problem List Initiated/Reviewed/Updated: Yes - My Orders Last 24 Hours: My Active Orders 06/26/20 07:27 Hydrocortisone [Hydrocortisone 1% Crm] 0 gm TOP BID PRN 06/26/20 09:00 Aspirin [Ecotrin] 325 mg PO DAILY metFORMIN [Glucophage] 1,000 mg PO BID 06/26/20 21:00 Simvastatin [Zocor] 20 mg PO BEDTIME 06/27/20 06:00 glipiZIDE [Glucotrol] 5 mg PO ACBREAKFAST 06/27/20 09:00 Pregabalin [Lyrica] 300 mg PO DAILY - Assessment Assessment:: Patient is a 80-year-old lady who is being treated for Covid pneumonia with hypoxemia. The patient will be kept on oxygen support to help keep her saturations between 90 and 92%. The patient is currently on remdesivir and this will be continued for full treatment dose. I have also ordered a CBC to follow the patient's previously noted anemia. Comprehensive metabolic panel has also been ordered. The patient will have appropriate carb constant diet and her blood sugars will be checked as per protocol. Her blood sugars are likely to be high as she is also on a steroid. The patient has been encouraged to ambulate. DVT prophylaxis will continue with Lovenox. The patient will also continue Keflex for her urinary tract infection. She should be appropriate for discharge after completion of her antiviral. 06/26/2020 The patient is a 80-year-old lady who is currently being treated for COVID-19 with hypoxia. The patient has a tendency to take her oxygen off and not remembering that she needs it. The patient's donezepil has been restarted. Her medication reconciliation was completed. We will continue on Keflex for her urinary tract infection. The patient is to continue with a carb constant diet. The patient has DVT prophylaxis with the use of Lovenox. This will be monitored along with her renal function. The patient is currently not ready to go home. I am concerned that the patient may require home oxygen and not be in a position to use it. The patient says that she is living at home and her has been taking care of her. We will continue with the full treatment dose for remdesivir. Repeat laboratory studies have been ordered. The patient also continue with her Keflex for urinary tract infection. She has been encouraged to ambulate. 06/27/2020 The patient is a 80-year-old lady who has been in hospitalization for 3 days. She is still currently being treated for COVID-19. The patient also has been maintaining her oxygen saturations between high 80s to low 90%. The patient will have her oxygen only as needed. I ordered repeat laboratory studies for the morning. I think the patient after completion of antiviral should be appropriate for discharge tomorrow. She is to continue with her current carb constant diet. Patient should also continue to ambulate. - Plan Plan:: Assessment 80-year-old female with poorly controlled diabetes with 1 week history of increasing fatigue and altered mental status was transferred from [facility] after a positive COVID-19 result. Patient was hospitalized for 2 days for a UTI prior to transfer. Covid viral pneumonia Hypoxemia * Initial testing at a near hospital was negative but confirmatory testing done on the same day was sent to the state was positive. * Reported fever today and chest x-ray consistent with viral pneumonia. * Repeat testing here was positive * agreed to treatment with convalescent plasma * I spoke with the patient and her to provide information about conv alescent plasma. I offered the "fax sheet for patients and parents/caregivers, for COVID-19 convalescent plasma to read and review. I stated that therapy has been approved by an emergency use authorization process and has not fully been FDA reviewed or approved. I shared potential risks from the therapy including transmission of blood borne pathogen such as HIV and hepatitis C, allergic and transfusion related reactions, post transfusion purpura. Additionally theoretical risks include a phenomenon called antibody-dependent enhancement of infection such as is seen in dengue or attenuation of an immune response that may make patients more susceptible to reinfection. 2 units ordered * Further laboratory testing pending Type 2 diabetespoorly controlled * On glipizide and Metformin at home * Unknown hemoglobin A1c Dementia * COVID-19 and the hypoxemia associated with it has a tendency to worsen mental status. * Dexamethasone used to combat COVID-19 also can worsen confusion. * Finally the elderly in a hospital setting can also have an increased risk for delirium. * Anticipate increasing confusion over the next few days. UTI, uncomplicated * E. coli sensitive to cefazolin Anemia * Reportedly chronic * History of previous work-up not available to me. * Fecal occult testing done in [place] was negative. Plan * Admit to medical floor on continuous pulse ox and telemetry * FiO2 to keep SPO2 between 88 and 94% * Patient may have difficulty keeping the nasal cannula in her nose because of her confusion. When I walked in it was out of her nose. * Start dexamethasone, remdesivir, convalescent plasma, vitamin D, zinc, Pepcid * Covid laboratory studies ordered * Anemia work-up pending * Keflex 500 mg 4 times daily for 3 days to complete 6 days of treatment * Start sliding scale insulin and stop Glucophage and glipizide, which she was on in the hospital and had a year * Reconcile other medications when available * Patient's been on 3 days of antibiotics, therefore blood cultures will be performed. * CODE STATUS: Full code * DVT prophylaxis with Lovenox
[2020-06-27] MEDS: Enoxaparin 40 MG/0.4 ML Syringe SUBCUT SCH (08:01)
[2020-06-27] MEDS: Pregabalin 75 MG Cap PO SCH (08:01)
[2020-06-27] MEDS: metFORMIN 500 MG Tab PO SCH ×2 (08:02→21:08)
[2020-06-27] MEDS: Lisinopril 20 MG Tab PO SCH (08:02)
[2020-06-27] MEDS: Zinc Sulfate 220 MG Cap PO SCH (08:02)
[2020-06-27] MEDS: Aspirin 325 MG Tab.EC PO SCH (08:02)
[2020-06-27] MEDS: Hydrochlorothiazide 25 MG Tab PO SCH (08:03)
[2020-06-27] MEDS: Cholecalciferol (Vitamin D3) 5,000 UNIT Cap PO SCH (08:03)
[2020-06-27] MEDS: Famotidine 20 MG Tab PO SCH (08:03)
[2020-06-27] MEDS: REMDESIVIR 100 MG in Sodium Chloride 0.9% 100 ML IV SCH (17:17)
[2020-06-27] MEDS ORDERED: Famotidine 20 MG Tab PO SCH (21:00)
[2020-06-27] MEDS: Donepezil 10 MG Tab PO SCH (21:07)
[2020-06-27] MEDS: Dexamethasone 4 MG Tab PO SCH (21:08)
[2020-06-27] MEDS: Simvastatin 20 MG Tab PO SCH (21:08)
[2020-06-28] MEDS ORDERED: Cephalexin 500 MG Cap PO ONE
[2020-06-28] MEDS ORDERED: Magnesium Hydroxide 400 MG/5 ML Susp 30 ML Cup PO ONE (05:03)
[2020-06-28] MEDS: glipiZIDE 5 MG Tab PO SCH (06:06)
--- NOTE | 2020-06-28 06:50 | PCM.DCSUM1 ---
Discharge Summary - Hospital Course HPI Initial Comments: The patient was admitted secondary to COVID-19 pneumonia. Diagnosis: Stroke: No - Discharge Data Discharge Date: 06/28/20 Discharge Disposition: Home, Self-Care 01 Condition: Good - Referral to Home Health Primary Care Physician: PCP None - Discharge Diagnosis/Problem(s) (1) Acute respiratory failure due to COVID-19 SNOMED Code(s): 506183250 ICD Code: U07.1 - COVID-19; J96.00 - ACUTE RESPIRATORY FAILURE, UNSP W HYPOXIA OR HYPERCAPNIA Status: Resolved Priority: High Current Visit: Yes (2) COVID-19 determined by clinical diagnostic criteria SNOMED Code(s): 004477967, 504787857 ICD Code: U07.1 - COVID-19 Status: Resolved Priority: High Current Visit: Yes (3) Viral pneumonia SNOMED Code(s): 72885179 ICD Code: J12.9 - VIRAL PNEUMONIA, UNSPECIFIED Status: Resolved Priority: High Current Visit: Yes (4) UTI (urinary tract infection) SNOMED Code(s): 12893569 ICD Code: N39.0 - URINARY TRACT INFECTION, SITE NOT SPECIFIED Status: Resolved Priority: High Current Visit: Yes Qualifiers: Urinary tract infection type: site unspecified Hematuria presence: without hematuria Qualified Code(s): N39.0 - Urinary tract infection, site not specified (5) Diabetes SNOMED Code(s): 69500332 ICD Code: E11.9 - TYPE 2 DIABETES MELLITUS WITHOUT COMPLICATIONS Status: Chronic Priority: Medium Current Visit: Yes Qualifiers: Diabetes mellitus type: type 2 Diabetes mellitus senior care insulin use: without computer terminal operator use Diabetes mellitus complication status: without complication Qualified Code(s): E11.9 - Type 2 diabetes mellitus without complications - Patient Summary/Data Consults: Consultations 06/25/20 11:10 OT Evaluation and Treatment [CONS] Routine PT Evaluation and Treatment [CONS] Routine 06/25/20 11:12 OT Evaluation and Treatment [CONS] Routine PT Evaluation and Treatment [CONS] Routine Hospital Course: The patient is a 80-year-old lady who was transferred from [facility] due to newly diagnosed COVID-19 pneumonia. 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 The patient was also noted to have a urinary tract infection and she was treated with Keflex for this. Due to the COVID-19 pneumonia the patient was started on remdesivir and dexamethasone. The patient also had been transfused with 2 units of convalescent plasma. The patient had tolerated these plasma transfusion as well as the medications without incident. Initially it was noted that the patient was hypoxic and she had been placed on oxygen supplementation however the patient could not tolerate this and had consistently removed her oxygen. The patient also had remained off of oxygen and her latest oxygen saturation was at 91%. The patient's initial chest x-ray had showed that she had findings compatible with mild bronchitis and mild pneumonia that was suspicious for viral disease. Repeat chest x-ray obtained on June 26, 2020 showed findings that were stable from the previous exam. The patient was also noted to have stable anemia with a hemoglobin of 9.2 g/dL. By day of discharge the patient had been tolerating diet. She had been ambulating by herself. The patient also has been recommended that she follow-up with her primary care physician. The patient also has been recommended to NOT DRIVE by herself until cleared by her primary care physician. She has been discharged from acute hospitalization with the recommendations listed above. - Patient Instructions Diet: Diabetic Diet Driving: Do Not Drive - Discharge Plan *PRESCRIPTION DRUG MONITORING PROGRAM REVIEWED*: No *COPY OF PRESCRIPTION DRUG MONITORING REPORT IN PATIENT MAYELA: No Prescriptions/Med Rec: dexAMETHasone [Dexamethasone] 6 mg PO BEDTIME #5 tablet Home Medications: Home Meds Aspirin 325 mg PO DAILY 06/25/20 [History] Donepezil HCl 10 mg PO BEDTIME 06/25/20 [History] Hydrocortisone [Hydrocortisone 1% Crm] 1 applic TOP BID PRN 06/25/20 [History] Lisinopril/Hydrochlorothiazide [Lisinopril-Hctz 20-25 mg Tab] 1 tab PO DAILY 06/25/20 [History] Pregabalin 300 mg PO DAILY 06/25/20 [History] Triamcinolone Acetonide [Triamcinolone Acetonide 0.1% Crm] 1 applic TOP BID PRN 06/25/20 [History] atorvaSTATin [Lipitor] 20 mg PO BEDTIME 06/25/20 [History] glipiZIDE [Glucotrol] 5 mg PO ACBREAKFAST 06/25/20 [History] metFORMIN [Glucophage] 1,000 mg PO BID 06/25/20 [History] Zinc Sulfate [Zincate] 220 mg PO DAILY cap 06/28/20 [Rx] dexAMETHasone [Dexamethasone] 6 mg PO BEDTIME #5 tablet 06/28/20 [Rx] Oxygen Therapy Mode: Room Air Patient Handouts: COVID-19 Frequently Asked Questions, Diabetes Mellitus and Sick Day Management, Sepsis, Diagnosis, Adult, Type 2 Diabetes Mellitus, Self C are, Adult, Acute Urinary Retention, Female, [id number], Coronavirus Information 08/15/19 Referrals: Forrest Jennings MD [Primary Care Provider] - 07/10/20 1:00 pm (Hospital follow-up appointment. [facility].) - Discharge Summary/Plan Comment DC Time >30 min.: Yes - General Info Date of Service: 06/28/20 Admission Dx/Problem (Free Text: Admission Diagnosis/Problem Admission Diagnosis/Problem Hypoxemia requiring supplemental oxygen, COVID- 19 Subjective Update: The patient says that she feels pretty well today. She has not been using oxygen. She has been tolerating her diet. The patient feels like she can go home safely. Functional Status: Reports: Pain Controlled, Tolerating Diet - Review of Systems General: Reports: No Symptoms HEENT: Reports: No Symptoms Pulmonary: Reports: No Symptoms Cardiovascular: Reports: No Symptoms Gastrointestinal: Reports: No Symptoms Genitourinary: Reports: No Symptoms Musculoskeletal: Reports: No Symptoms Skin: Reports: No Symptoms Neurological: Reports: No Symptoms Psychiatric: Reports: No Symptoms - Patient Data Vitals - Most Recent: Last Vital Signs Temp 36.8 C 06/28/20 01:26 Pulse 73 06/28/20 04:00 Resp 16 06/28/20 01:26 BP 149/54 H 06/28/20 01:26 Pulse Ox 95 06/28/20 04:00 Weight - Most Recent: 73.437 kg I&O - Last 24 hours: Intake & Output 06/27/20 06/27/20 06/28/20 14:59 22:59 06:59 Intake Total 240 820 500 Output Total 650 600 Balance 240 170 -100 Lab Results - Last 24 hrs: Laboratory Results - last 24 hr 06/27/20 06/27/20 06/27/20 Range/Units 06:05 06:05 11:11 WBC (3.98-10.04) K/mm3 RBC (3.98-5.22) M/mm3 Hgb (11.2-15.7) gm/dl Hct (34.1-44.9) % MCV (79.4-94.8) fl MCH (25.6-32.2) pg MCHC (32.2-35.5) g/dl RDW Std Deviation (36.4-46.3) fL Plt Count (182-369) K/mm3 MPV (9.4-12.3) fl Neut % (Auto) (34.0-71.1) % Lymph % (Auto) (19.3-51.7) % [place] % (Auto) (4.7-12.5) % Eos % (Auto) (0.7-5.8) Baso % (Auto) (0.1-1.2) % Neut # (Auto) (1.56-6.13) K/mm3 Lymph # (Auto) (1.18-3.74) K/mm3 [place] # (Auto) (0.24-0.36) K/mm3 Eos # (Auto) (0.04-0.36) K/mm3 Baso # (Auto) (0.01-0.08) K/mm3 Manual Slide Review Abnormal smear Sodium 142 (136-145) mEq/L Potassium 3.7 (3.5-5.1) mEq/L Chloride 103 (98-107) mEq/L Carbon Dioxide 22 (21-32) mEq/L Anion Gap 20.7 H (5-15) BUN 32 H (7-18) mg/dL Creatinine 1.0 (0.55-1.02) mg/dL Est Cr Clr Drug Dosing 44.24 mL/min Estimated GFR (MDRD) 53 (>60) mL/min BUN/Creatinine Ratio 32.0 H (14-18) Glucose 309 H (83-115) mg/dL POC Glucose 258 H (83-110) mg/dL Calcium 8.8 (8.5-10.1) mg/dL Magnesium 2.4 (1.8-2.4) mg/dl Total Bilirubin 0.5 (0.2-1.0) mg/dL AST 18 (15-37) U/L ALT 14 (14-59) U/L Alkaline Phosphatase 92 (46-116) U/L Total Protein 7.4 (6.4-8.2) g/dl Albumin 2.8 L (3.4-5.0) g/dl Globulin 4.6 gm/dL Albumin/Globulin Ratio 0.6 L (1-2) 06/27/20 06/27/20 06/28/20 Range/Units 16:50 21:04 06:05 WBC (3.98-10.04) K/mm3 RBC (3.98-5.22) M/mm3 Hgb (11.2-15.7) gm/dl Hct (34.1-44.9) % MCV (79.4-94.8) fl MCH (25.6-32.2) pg MCHC (32.2-35.5) g/dl RDW Std Deviation (36.4-46.3) fL Plt Count (182-369) K/mm3 MPV (9.4-12.3) fl Neut % (Auto) (34.0-71.1) % Lymph % (Auto) (19.3-51.7) % [place] % (Auto) (4.7-12.5) % Eos % (Auto) (0.7-5.8) Baso % (Auto) (0.1-1.2) % Neut # (Auto) (1.56-6.13) K/mm3 Lymph # (Auto) (1.18-3.74) K/mm3 [place] # (Auto) (0.24-0.36) K/mm3 Eos # (Auto) (0.04-0.36) K/mm3 Baso # (Auto) (0.01-0.08) K/mm3 Manual Slide Review Sodium (136-145) mEq/L Potassium (3.5-5.1) mEq/L Chloride (98-107) mEq/L Carbon Dioxide (21-32) mEq/L Anion Gap (5-15) BUN (7-18) mg/dL Creatinine (0.55-1.02) mg/dL Est Cr Clr Drug Dosing mL/min Estimated GFR (MDRD) (>60) mL/min BUN/Creatinine Ratio (14-18) Glucose (83-115) mg/dL POC Glucose 177 H 258 H 298 H (83-110) mg/dL Calcium (8.5-10.1) mg/dL Magnesium (1.8-2.4) mg/dl Total Bilirubin (0.2-1.0) mg/dL AST (15-37) U/L ALT (14-59) U/L Alkaline Phosphatase (46-116) U/L Total Protein (6.4-8.2) g/dl Albumin (3.4-5.0) g/dl Globulin gm/dL Albumin/Globulin Ratio (1-2) 06/28/20 06/28/20 Range/Units 06:16 06:16 WBC 4.40 (3.98-10.04) K/mm3 RBC 3.35 L (3.98-5.22) M/mm3 Hgb 9.2 L (11.2-15.7) gm/dl Hct 28.6 L (34.1-44.9) % MCV 85.4 (79.4-94.8) fl MCH 27.5 (25.6-32.2) pg MCHC 32.2 (32.2-35.5) g/dl RDW Std Deviation 44.6 (36.4-46.3) fL Plt Count 374 H (182-369) K/mm3 MPV 10.4 (9.4-12.3) fl Neut % (Auto) 67.0 (34.0-71.1) % Lymph % (Auto) 25.9 (19.3-51.7) % [place] % (Auto) 6.4 (4.7-12.5) % Eos % (Auto) 0 L (0.7-5.8) Baso % (Auto) 0.2 (0.1-1.2) % Neut # (Auto) 2.95 (1.56-6.13) K/mm3 Lymph # (Auto) 1.14 L (1.18-3.74) K/mm3 [place] # (Auto) 0.28 (0.24-0.36) K/mm3 Eos # (Auto) 0.00 L (0.04-0.36) K/mm3 Baso # (Auto) 0.01 (0.01-0.08) K/mm3 Manual Slide Review Sodium 143 (136-145) mEq/L Potassium 3.7 (3.5-5.1) mEq/L Chloride 105 (98-107) mEq/L Carbon Dioxide 21 (21-32) mEq/L Anion Gap 20.7 H (5-15) BUN 31 H (7-18) mg/dL Creatinine 0.9 (0.55-1.02) mg/dL Est Cr Clr Drug Dosing 49.16 mL/min Estimated GFR (MDRD) > 60 (>60) mL/min BUN/Creatinine Ratio 34.4 H (14-18) Glucose 277 H (83-115) mg/dL POC Glucose (83-110) mg/dL Calcium 8.7 (8.5-10.1) mg/dL Magnesium (1.8-2.4) mg/dl Total Bilirubin (0.2-1.0) mg/dL AST (15-37) U/L ALT (14-59) U/L Alkaline Phosphatase (46-116) U/L Total Protein (6.4-8.2) g/dl Albumin (3.4-5.0) g/dl Globulin gm/dL Albumin/Globulin Ratio (1-2) Med Orders - Current: Current Medications Acetaminophen (Tylenol) 650 mg PO Q4H PRN PRN Reason: Fever Greater Than 101 Last Admin: 06/25/20 03:37 Dose: 650 mg Documented by: Aspirin (Ecotrin) 325 mg PO DAILY [facility] Last Admin: 06/27/20 08:02 Dose: 325 mg Documented by: Cholecalciferol (Vitamin D3) 5,000 unit PO DAILY [facility] Last Admin: 06/27/20 08:03 Dose: 5,000 unit Documented by: Dexamethasone (Dexamethasone) 6 mg PO BEDTIME [facility] Stop: 07/03/20 21:01 Last Admin: 06/27/20 21:08 Dose: 6 mg Documented by: Donepezil HCl (Aricept) 10 mg PO BEDTIME [facility] Last Admin: 06/27/20 21:07 Dose: 10 mg Documented by: Enoxaparin Sodium (Lovenox) 40 mg SUBCUT DAILY [facility] Last Admin: 06/27/20 08:01 Dose: 40 mg Documented by: Famotidine (Pepcid) 20 mg PO BEDTIME [facility] Last Admin: 06/27/20 21:07 Dose: 20 mg Documented by: Glipizide (Glucotrol) 5 mg PO ACBREAKFAST [facility] Last Admin: 06/28/20 06:06 Dose: 5 mg Documented by: Hydrochlorothiazide (Hydrochlorothiazide) 25 mg PO DAILY [facility] Last Admin: 06/27/20 08:03 Dose: 25 mg Documented by: Hydrocortisone (Hydrocortisone 1% Crm) 0 gm TOP BID PRN PRN Reason: Rash Remdesivir 100 mg/ Sodium (Chloride) 100 mls @ 100 mls/hr IV DAILY@1800 [facility] Stop: 06/28/20 18:59 Last Admin: 06/27/20 17:17 Dose: 100 mls/hr Documented by: Insulin Human Lispro (Humalog) 0 unit SUBCUT QIDACANDBED [facility]; Protocol Last Admin: 06/27/20 21:13 Dose: 6 unit Documented by: Lisinopril (Prinivil) 20 mg PO DAILY [facility] Last Admin: 06/27/20 08:02 Dose: 20 mg Documented by: Metformin HCl (Glucophage) 1,000 mg PO BID [facility] Last Admin: 06/27/20 21:08 Dose: 1,000 mg Documented by: Ondansetron HCl (Zofran) 4 mg IV Q4H PRN PRN Reason: Nausea/Vomiting Pregabalin (Lyrica) 300 mg PO DAILY [facility] Last Admin: 06/27/20 08:01 Dose: 300 mg Documented by: Simvastatin (Zocor) 20 mg PO BEDTIME [facility] Last Admin: 06/27/20 21:08 Dose: 20 mg Documented by: Zinc Sulfate (Zincate) 220 mg PO DAILY [facility] Last Admin: 06/27/20 08:02 Dose: 220 mg Documented by: Discontinued Medications Acetaminophen (Tylenol) 650 mg PO Q4H PRN PRN Reason: Pain (Mild 1-3)/fever Cephalexin (Keflex) 500 mg PO Q6HR [facility] Stop: 06/27/20 18:01 Last Admin: 06/27/20 17:17 Dose: 500 mg Documented by: Cephalexin (Keflex) 500 mg PO ONETIME ONE Stop: 06/28/20 00:01 Last Admin: 06/28/20 01:26 Dose: 500 mg Documented by: Dexamethasone (Dexamethasone) 6 mg PO DAILY [facility] Stop: 07/03/20 09:01 Last Admin: 06/25/20 00:54 Dose: 6 mg Documented by: Famotidine (Pepcid) 20 mg PO BID [facility] Last Admin: 06/27/20 08:03 Dose: 20 mg Documented by: Remdesivir 200 mg/ Sodium (Chloride) 250 mls @ 250 mls/hr IV ONETIME ONE Stop: 06/25/20 01:14 Last Admin: 06/25/20 00:52 Dose: 250 mls/hr Documented by: Sodium Chloride (Normal Saline) 100 mls @ 25 mls/hr IV ASDIRECTED KRYSTINA Magnesium Hydroxide (Milk Of Magnesia) 30 ml PO ONETIME ONE Stop: 06/28/20 05:04 Non-Formulary Medication (Lisinopril/Hydrochlorothiazide [Lisinopril-Hctz 20-25 Mg Tab]) 1 tab PO DAILY KRYSTINA Pregabalin (Lyrica) 300 mg PO BID [facility] Last Admin: 06/26/20 08:43 Dose: 300 mg Documented by: Triamcinolone Acetonide (Triamcinolone Acetonide 0.1% Crm) gm TOP BID PRN PRN Reason: Rash - Exam Quality Assessment: Denies: Supplemental Oxygen General: Reports: Alert, Oriented, Cooperative HEENT: Reports: Pupils Equal, Pupils Reactive Neck: Reports: Supple, Trachea Midline Lungs: Reports: Clear to Auscultation, Normal Respiratory Effort Cardiovascular: Reports: Regular Rate, Regular Rhythm GI/Abdominal Exam: Normal Bowel Sounds, Soft, No Distention (Female) Exam: Deferred Rectal (Female) Exam: Deferred Back Exam: Reports: Normal Inspection, Full Range of Motion Extremities: Normal Inspection, No Pedal Edema Skin: Reports: Warm, Dry, Intact Neurological: Reports: No New Focal Deficit Psy/Mental Status: Reports: Alert, Normal Affect
[2020-06-28] MEDS: Pregabalin 75 MG Cap PO SCH (08:21)
[2020-06-28] MEDS: Aspirin 325 MG Tab.EC PO SCH (08:22)
[2020-06-28] MEDS: metFORMIN 500 MG Tab PO SCH (08:23)
[2020-06-28] MEDS: Hydrochlorothiazide 25 MG Tab PO SCH (08:23)
[2020-06-28] MEDS: Cholecalciferol (Vitamin D3) 5,000 UNIT Cap PO SCH (08:24)
[2020-06-28] MEDS: Zinc Sulfate 220 MG Cap PO SCH (08:25)
[2020-06-28] MEDS: Enoxaparin 40 MG/0.4 ML Syringe SUBCUT SCH (08:25)
[2020-06-28] MEDS: Lisinopril 20 MG Tab PO SCH (08:29)
== END 2020-06-28 12:35 | disposition home or self-care (01) | DRG 177 ==
LOC: JD.MS 21:04
PROVIDERS: ADMIT Family Medicine; ATTEND Family Medicine
PROC: 8E0ZXY6 Isolation (ICD-10-PCS; principal; 2020-06-24)
PROC: XW033E5 Introduction of Remdesivir Anti-infective into Peripheral Vein, Percutaneous Approach, New Technology Group 5 (ICD-10-PCS; 2020-06-25)
PROC: XW13325 Transfusion of Convalescent Plasma (Nonautologous) into Peripheral Vein, Percutaneous Approach, New Technology Group 5 (ICD-10-PCS; 2020-06-25)
DX: U07.1 COVID-19 (principal); J12.82 Pneumonia due to coronavirus disease 2019; J96.01 Acute respiratory failure with hypoxia; N39.0 Urinary tract infection, site not specified; J40 Bronchitis, not specified as acute or chronic; I10 Essential (primary) hypertension; F03.90 Unspecified dementia, unspecified severity, without behavioral disturbance, psychotic disturbance, mood disturbance, and anxiety; E11.65 Type 2 diabetes mellitus with hyperglycemia; B96.20 Unspecified Escherichia coli [E. coli] as the cause of diseases classified elsewhere; D64.9 Anemia, unspecified; Z87.891 Personal history of nicotine dependence; Z99.81 Dependence on supplemental oxygen
CPT/HCPCS: 36415; 36430; 71045; 71045-26; 80048; 80053; 80076; 82306; 82607; 82728; 82962; 83036; 83540; 83605; 83615; 83735; 84145; 84466; 85025; 85379; 85610; 85730; 86140; 86850; 86900; 86901; 94761; 97110-GP; 97162-GP; 97530-GP; 99222; 99232; 99233; 99239; A9270-GY; J1650; J1815-GY; J7050; J8540; P9017; U0002